=== PATIENT | female | born 1985 | race African-American/Black ===

== ENCOUNTER 2019-02-20 04:17 | Observation (INO) | payer OTHER ==
[~2019-02-20] VITALS: Ht 170.2 cm; Wt 52.2 kg
[2019-02-20] MEDS ORDERED: CEFAZOLIN SODIUM 500MG/VIAL IV ONE (05:15)
[2019-02-20] MEDS ORDERED: CEFAZOLIN 2000MG in DEXTROSE 5% WATER 100ML IV NR (05:30)
[2019-02-20] MEDS: LACTATED RINGERS 1,000 ML IV SCH ×2 (05:42→08:37)
[2019-02-20 05:45] LABS: CLARITY URINE CLOUDY (CLEAR); COLOR URINE YELLOW (YELLOW); KETONES URINE NEGATIVE (NEGATIVE); LEUKOCYTE ESTERASE URINE 3+ (NEGATIVE); NITRITE URINE POSITIVE (NEGATIVE); OCCULT BLOOD URINE 2+ (NEGATIVE); PH URINE 5.5 (4.5-8.0); PROTEIN URINE 1+ (NEGATIVE); SPECIFIC GRAVITY URINE 1.012 (1.005-1.030); UROBILINOGEN URINE 0.2 E.U./dL (0.2-1.0)
[2019-02-20] MEDS ORDERED: ONDANSETRON HCL 4MG/2ML INJ IV ONE (08:30)
== END 2019-02-20 09:30 | disposition home or self-care (01) ==
LOC: 8 EST LDRP 04:17
PROVIDERS: ADMIT Obstetrics & Gynecology; ATTEND Obstetrics & Gynecology
DX: O26.892 Other specified pregnancy related conditions, second trimester (principal); R10.30 Lower abdominal pain, unspecified; Z3A.20 20 weeks gestation of pregnancy
CPT/HCPCS: 76815; 87077; 87186; 96360; 96361; 96365; 96366; 96375; 99281; G0378; J0690; J2405; J7060

== ENCOUNTER 2019-02-26 22:10 | Observation (INO) | payer OTHER ==
[~2019-02-26] VITALS: Ht 167.6 cm; Wt 47.6 kg
[2019-02-26] MEDS ORDERED: PREN1TAB78 MT (22:54)
[2019-02-26 23:46] LABS: CLARITY URINE TURBID (CLEAR); COLOR URINE YELLOW (YELLOW); KETONES URINE NEGATIVE (NEGATIVE); LEUKOCYTE ESTERASE URINE 3+ (NEGATIVE); NITRITE URINE NEGATIVE (NEGATIVE); OCCULT BLOOD URINE 2+ (NEGATIVE); PH URINE 5.5 (4.5-8.0); PROTEIN URINE 2+ (NEGATIVE); SPECIFIC GRAVITY URINE 1.015 (1.005-1.030); UROBILINOGEN URINE 0.2 E.U./dL (0.2-1.0)
[2019-02-27] MEDS ORDERED: ACETAMINOPHEN 500MG TABLET PO SCH
[2019-02-27] MEDS ORDERED: CEFAZOLIN 2,000 MG in DEXT 5% WATER 100 ML IV SCH ×2
[2019-02-27] MEDS ORDERED: SODIUM CHLORIDE 0.9% 1,000 ML IV SCH
== END 2019-02-27 01:30 | disposition home or self-care (01) ==
LOC: 8 EST LDRP 22:10
PROVIDERS: ADMIT Specialist; ATTEND Specialist
DX: O26.852 Spotting complicating pregnancy, second trimester (principal); Z3A.21 21 weeks gestation of pregnancy
CPT/HCPCS: 81003; 87077; 87086; 87186; 96365; 99281; G0378; J0690; J7060; 96360; 96361